=== PATIENT | male | born 1990 | race African-American/Black ===

== ENCOUNTER 2018-08-15 19:55 | Emergency (ER) | payer OTHER, SELFPAY ==
[2018-08-15 20:00] VITALS: BP 184/93; PULSE 90; RESP 14; TEMP 36.4; O2SAT 99; BMI 32.5
--- NOTE | 2018-08-15 20:09 | DI.CT.S_ITS ---
PROCEDURE: CT ABDOMEN PELVIS W CON INDICATIONS: Hemoptysis TECHNIQUE: After the administration of oral and intravenous contrast, 5 mm thick sections acquired from the diaphragms to the symphysis. 5 mm thick coronal and sagittal reformats were performed. For radiation dose reduction, the following was used: automated exposure control, adjustment of mA and/or kV according to patient size. COMPARISON: None. FINDINGS: Image quality: Excellent. ABDOMEN: Lung bases: Lung bases are clear. Heart size is normal. No varices visualized. Solid organs: No focal hepatic lesions identified. Liver is smooth in contour. Gallbladder appears within normal limits without calcified gallstones. Biliary system is non-dilated. Pancreas enhances normally. Spleen is normal in size and enhancement. No adrenal nodules. Kidneys are normal in size and enhancement, without hydronephrosis. Peritoneum and bowel: Stomach, small bowel, and colon loops are normal in caliber and wall thickness. The appendix is normal in appearance. There is colonic diverticulosis without acute diverticulitis. No free fluid or air. Nodes and vessels: No retroperitoneal or mesenteric adenopathy. Aorta and inferior vena cava are normal in caliber. Miscellaneous: No ventral hernias. PELVIS: Genitourinary: The urinary bladder is partially distended with mild concentric wall thickening. Miscellaneous: No inguinal hernias or adenopathy. Bones: No suspicious bony lesions. No vertebral body compression fractures. IMPRESSION: 1. No definite acute intra-abdominal abnormality to correlate with history of hemoptysis. 2. Diverticulosis without acute diverticulitis. 3. Mild concentric bladder wall thickening may reflect nondistention or a nonspecific cystitis. Recommend correlation with urinalysis. Dictated by: Nabil Dowling M.D. on 08/15/2018 at 21:34 Approved by: Nabil Dowling M.D. on 08/15/2018 at 21:41
[2018-08-15 20:21] LABS: Add Manual Diff / Slide Review NO; Basophils Percent Auto 0.3 % (0-2); Eosinophils Percent Auto 0.4 % (2-4); Hematocrit 43.1 % (41-53); Hemoglobin 14.6 g/dL (13.5-17.5); Lymphocytes Percent Auto 23.8 % (25-40); Mean Corpuscular HGB Conc 33.9 % (30-36); Mean Corpuscular Hemoglobin 30.1 PG (26-34); Mean Corpuscular Volume 88.9 fL (80-100); Monocytes Percent Auto 7.7 % (3-14); Neutrophils Absolute Auto 4100 /uL (3000-5900); Neutrophils Percent Auto 67.8 % (50-75); Platelet Count 300 X10^3/uL (150-400); Red Blood Cell Count 4.85 X10^6/uL (4.5-5.9); Red Cell Distribution Width 14.1 % (11.6-14.8)
[2018-08-15] MEDS: SODIUM CHLORIDE 0.9% 1,000 ML 1000 ML IV (20:25)
[2018-08-15] MEDS: ONDANSETRON 4 MG/2 ML INJ IV (20:25)
[2018-08-15] MEDS: PANTOPRAZOLE 40 MG VIAL IV (20:25)
[2018-08-15 20:42] VITALS: BP 148/58; PULSE 79; RESP 18; O2SAT 100
[2018-08-15 20:55] LABS: Alanine Aminotransferase 53 IU/L (21-72); Albumin 5.2 g/dL (3.5-5.0); Albumin Globulin Ratio 1.3 (1.0-2.8); Alkaline Phosphatase 77 U/L (38-126); Aspartate Aminotransferase 79 IU/L (17-59); BUN Creatinine Ratio 15.6 (6-22); Bilirubin Total 0.8 mg/dL (0.2-1.3); Blood Urea Nitrogen 14 mg/dL (9-20); Calcium 10.4 mg/dL (8.4-10.2); Carbon Dioxide 29 mmol/L (22-32); Chloride 91 mmol/L (98-107); Estimated Glomerular Filt Rate > 60.0 mL/min (>60); Globulin 3.9 g/dL (1.7-4.1); Glucose 100 mg/dL (70-100); HEMOLYSIS < 15 (0-50); Lipase 144 U/L (23-300); Potassium 3.9 mmol/L (3.4-5.1); Sodium 136 mmol/L (137-145); Total Protein 9.1 g/dL (6.3-8.2)
--- NOTE | 2018-08-15 21:28 | ED_ITS ---
HPI - Abdominal Pain <ABIMAEL Kimball - Last Filed: 08/15/18 22:00> General Chief Complaint: Abdominal Pain Stated Complaint: THROWING UP BLOOD Time Seen by Provider: 08/15/18 20:07 Source: patient Mode of arrival: ambulatory Limitations: no limitations History of Present Illness HPI narrative: 28-year-old male with history of hypertension is a nonsmoker here for complaint of having bloody emesis earlier today. He states that he drinks approximately 2 bottles of wine a day. He did not have any alcohol today. He said he had 1 episode earlier today where he had some nausea vomiting where he has emesis were blood was mixed in with food. This was a few hours ago. He denies any repeat episodes of emesis he denies any abdominal pain. He denies any fevers or chills. No trauma. He denies any chest pain. He denies any other concerns or complaints at this timeframe. complaint: other Related Data Home Medications Medication Instructions Recorded Confirmed hydrochlorothiazide 25 mg PO DAILY 08/15/18 08/15/18 Previous Rx's Medication Instructions Recorded omeprazole 40 mg PO DAILY #14 cap 08/15/18 Allergies Allergy/AdvReac Type Severity Reaction Status Date / Time No Known Drug Allergies Allergy Verified 08/15/18 20:03 Review of Systems <ABIMAEL Kimball - Last Filed: 08/15/18 22:00> Constitutional Denies chills, Denies fever(s), Denies lethargy and Denies weakness Eyes Denies change in vision, Denies eye discharge, Denies irritation and Denies loss of vision ENT Ears, Nose, Mouth, and Throat: Denies change in voice, Denies neck pain and Denies sore throat Cardiovascular Denies chest pain, Denies irregular heart rhythm, Denies lightheadedness, Denies palpitations, Denies dyspnea, Denies dyspnea on exertion and Denies orthopnea Respiratory Denies cough, Denies dyspnea, Denies dyspnea on exertion and Denies wheezing Gastrointestinal Gastrointestinal: Denies abdominal pain, Denies change in bowel habits, Denies diarrhea, Denies nausea, Denies vomiting and Reports hematemesis Genitourinary Denies hematuria, Denies flank pain, Denies urinary incontinence and Denies urinary urgency Musculoskeletal Denies neck pain Integumentary/Breasts Denies pruritus, Denies erythema, Denies rash and Denies wounds Neurologic Denies confusion, Denies loss of vision and Denies weakness Psychiatric Denies anxiety, Denies confusion, Denies depression, Denies homicidal ideation and Denies suicidal ideation Endocrine Denies palpitations Hematologic/Lymphatic Denies easy bruising Allergic/Immunologic Denies wheezing Exam <ABIMAEL Kimball - Last Filed: 08/15/18 22:00> Initial Vital Signs Initial Vital Signs: Vital Signs Temperature 97.6 F 08/15/18 20:00 Pulse Rate 90 08/15/18 20:00 Respiratory Rate 14 08/15/18 20:00 Blood Pressure 184/93 H 08/15/18 20:00 Pulse Oximetry 99 08/15/18 20:00 Const General: cooperative and well developed Nutritional Appearance: well nourished Orientation: alert, awake, oriented x3 and not confused HENMT Mouth: oral mucosae normal and moist mucous membranes Eyes Conjunctivae: conjunctivae normal Sclera: sclerae normal Pupils: PERRL EOM: EOM intact bilaterally Neck Neck: normal visual inspection, trachea midline, No lymphadenopathy, No midline deformity and No JVD Lymphatic: No lymphedema Chest Chest: normal inspection of the chest Resp Effort & Inspection: normal respiratory effort, able to speak in complete sentences, no respiratory distress and no use of accessory muscles Auscultation: clear to auscultation bilaterally, no rales, no rhonchi and no wheezes Cardio Rate: regular rate Rhythm: regular rhythm Heart Sounds: no click, no gallops, no murmurs and no rubs GI Inspection: non-distended Palpation: soft, no hepatosplenomegaly, No guarding, No pulsatile mass and No tender Auscultation: normal bowel sounds General: No CVA tenderness Skin General: no rashes or lesions noted, No jaundice and No petechiae Neuro General: alert, oriented x3, gait normal and no focal motor deficits Speech: speech normal Extrem General: full ROM, no clubbing, cyanosis or edema, no pedal edema and no calf tenderness <Donavon Robert DO - Last Filed: 08/16/18 00:18> Initial Vital Signs Initial Vital Signs: Vital Signs Temperature 97.6 F 08/15/18 20:00 Pulse Rate 90 08/15/18 20:00 Respiratory Rate 14 08/15/18 20:00 Blood Pressure 184/93 H 08/15/18 20:00 Pulse Oximetry 99 08/15/18 20:00 Course <ABIMAEL Kimball - Last Filed: 08/15/18 22:00> Orders Ordered: ED Orders 08/15/18 20:09 CT abdomen pelvis w con Stat 08/15/18 20:10 Complete Blood Count AUTO DIFF Stat Comprehensive Metabolic Panel Stat Lipase Stat Type and Screen Stat Discontinued Medications Sodium Chloride (Normal Saline 0.9%) 1,000 mls @ 1,000 mls/hr IV BOLUS ONE Stop: 08/15/18 21:10 Last Infusion: 08/15/18 21:55 Dose: 0 mls/hr Admin: 08/15/18 20:25 Dose: 1,000 mls/hr Ondansetron HCl (Zofran) 4 mg IV NOW ONE Stop: 08/15/18 20:12 Last Admin: 08/15/18 20:25 Dose: 4 mg Pantoprazole Sodium (Protonix) 40 mg IV NOW ONE Stop: 08/15/18 20:22 Last Admin: 08/15/18 20:25 Dose: 40 mg Vital Signs - 8 hr 08/15/18 20:00 08/15/18 20:42 08/15/18 22:16 Temperature 97.6 F Pulse Rate 90 79 74 Respiratory Rate 14 18 14 Blood Pressure 184/93 H 155/79 H Blood Pressure [Left Arm] 148/58 H Pulse Oximetry 99 100 100 <Donavon Robert DO - Last Filed: 08/16/18 00:18> Orders Ordered: ED Orders 08/15/18 20:09 CT abdomen pelvis w con Stat 08/15/18 20:10 Complete Blood Count AUTO DIFF Stat Comprehensive Metabolic Panel Stat Lipase Stat Type and Screen Stat Discontinued Medications Sodium Chloride (Normal Saline 0.9%) 1,000 mls @ 1,000 mls/hr IV BOLUS ONE Stop: 08/15/18 21:10 Last Infusion: 08/15/18 21:55 Dose: 0 mls/hr Admin: 08/15/18 20:25 Dose: 1,000 mls/hr Ondansetron HCl (Zofran) 4 mg IV NOW ONE Stop: 08/15/18 20:12 Last Admin: 08/15/18 20:25 Dose: 4 mg Pantoprazole Sodium (Protonix) 40 mg IV NOW ONE Stop: 08/15/18 20:22 Last Admin: 08/15/18 20:25 Dose: 40 mg Vital Signs - 8 hr 08/15/18 20:00 08/15/18 20:42 08/15/18 22:16 Temperature 97.6 F Pulse Rate 90 79 74 Respiratory Rate 14 18 14 Blood Pressure 184/93 H 155/79 H Blood Pressure [Left Arm] 148/58 H Pulse Oximetry 99 100 100 MDM - Abdominal Pain <ABIMAEL Kimball - Last Filed: 08/15/18 22:00> Lab Data Result diagrams: 08/15/18 20:10 08/15/18 20:10 Lab Results 08/15/18 08/15/18 08/15/18 Range/Units 20:10 20:10 20:10 WBC 6.0 (4.5-11.0) X10^3/uL RBC 4.85 (4.5-5.9) X10^6/uL Hgb 14.6 (13.5-17.5) g/dL Hct 43.1 (41-53) % MCV 88.9 (80-100) fL MCH 30.1 (26-34) PG MCHC 33.9 (30-36) % RDW 14.1 (11.6-14.8) % Plt Count 300 (150-400) X10^3/uL Neut % (Auto) 67.8 (50-75) % Lymph % (Auto) 23.8 L (25-40) % Anson % (Auto) 7.7 (3-14) % Eos % (Auto) 0.4 L (2-4) % Baso % (Auto) 0.3 (0-2) % Neut # (Auto) 4100 (6591-1927) /uL Sodium 136 L (137-145) mmol/L Potassium 3.9 (3.4-5.1) mmol/L Chloride 91 L (98-107) mmol/L Carbon Dioxide 29 (22-32) mmol/L BUN 14 (9-20) mg/dL Creatinine 0.90 (0.66-1.25) mg/dL Estimated GFR > 60.0 (>60) mL/min BUN/Creatinine Ratio 15.6 (6-22) Glucose 100 (70-100) mg/dL Calcium 10.4 H (8.4-10.2) mg/dL Total Bilirubin 0.8 (0.2-1.3) mg/dL AST 79 H (17-59) IU/L ALT 53 (21-72) IU/L Alkaline Phosphatase 77 (38-126) U/L Total Protein 9.1 H (6.3-8.2) g/dL Albumin 5.2 H (3.5-5.0) g/dL Globulin 3.9 (1.7-4.1) g/dL Albumin/Globulin Ratio 1.3 (1.0-2.8) Lipase 144 (23-300) U/L Blood Type O Positive Antibody Screen Negative Point of care testing: Urine Dip Bedside Urine Glucose Negative Bedside Urine Bilirubin - Negative Bedside Urine Ketone +/- 5 Urine Specific Lind[place] 1.010 Bedside Urine Occult Blood - Negative Bedside Urine pH 7.5 Bedside Urine Protein - Negative Bedside Urine Urobilinogen - Negative Bedside Urine Nitrite - Negative Bedside Urine Leukocytes - Negative Esterase Imaging Data CT scan - abdomen: Radiologist's impression: [place] [address] CT Scan Report Signed Patient: NABOR CABALLERO EMR#: [id number] : 1990Acct:[id number] Age/Sex: MDate of Service: 08/15/18 Loc: ED Accession Number: [id number] Procedure: CT abdomen pelvis w con Ordering Provider: Bong Brito PROCEDURE: CT ABDOMEN PELVIS W CON INDICATIONS: Hemoptysis TECHNIQUE: After the administration of oral and intravenous contrast, 5 mm thick sections acquired from the diaphragms to the symphysis. 5 mm thick coronal and sagittal reformats were performed. For radiation dose reduction, the following was used: automated exposure control, adjustment of mA and/or kV according to patient size. COMPARISON: None. FINDINGS: Image quality: Excellent. ABDOMEN: Lung bases: Lung bases are clear. Heart size is normal. No varices visualized. Solid organs: No focal hepatic lesions identified. Liver is smooth in contour. Gallbladder appears within normal limits without calcified gallstones. Biliary system is non-dilated. Pancreas enhances normally. Spleen is normal in size and enhancement. No adrenal nodules. Kidneys are normal in size and enhancement, without hydronephrosis. Peritoneum and bowel: Stomach, small bowel, and colon loops are normal in caliber and wall thickness. The appendix is normal in appearance. There is colonic diverticulosis without acute diverticulitis. No free fluid or air. Nodes and vessels: No retroperitoneal or mesenteric adenopathy. Aorta and inferior vena cava are normal in caliber. Miscellaneous: No ventral hernias. PELVIS: Genitourinary: The urinary bladder is partially distended with mild concentric wall thickening. Miscellaneous: No inguinal hernias or adenopathy. Bones: No suspicious bony lesions. No vertebral body compression fractures. IMPRESSION: 1. No definite acute intra-abdominal abnormality to correlate with history of hemoptysis. 2. Diverticulosis without acute diverticulitis. 3. Mild concentric bladder wall thickening may reflect nondistention or a nonspecific cystitis. Recommend correlation with urinalysis. Dictated by: Nabil Dowling M.D. on 08/15/2018 at 21:34 Approved by: Nabil Dowling M.D. on 08/15/2018 at 21:41 MDM Narrative Medical decision making narrative: CBC was obtained was unremarkable. Chem panel shows mildly elevated AST otherwise is unremarkable. Lipase was negative. CT of the abdomen was obtained and was negative for any acute findings with exception of bladder wall thickening. Urinalysis dip was negative for urinary tract infection. He is prescribed esomeprazole for 2 weeks to see if it helps symptoms. Follow up with primary care provider for frequent re-evaluation. May need endoscopy for further evaluation. For any worsening symptoms return emergency room. He is instructed to limit ibuprofen use and use Tylenol until cleared by primary care. <Donavon Robert, - Last Filed: 08/16/18 00:18> Lab Data Lab Results 08/15/18 08/15/18 08/15/18 Range/Units 20:10 20:10 20:10 WBC 6.0 (4.5-11.0) X10^3/uL RBC 4.85 (4.5-5.9) X10^6/uL Hgb 14.6 (13.5-17.5) g/dL Hct 43.1 (41-53) % MCV 88.9 (80-100) fL MCH 30.1 (26-34) PG MCHC 33.9 (30-36) % RDW 14.1 (11.6-14.8) % Plt Count 300 (150-400) X10^3/uL Neut % (Auto) 67.8 (50-75) % Lymph % (Auto) 23.8 L (25-40) % Anson % (Auto) 7.7 (3-14) % Eos % (Auto) 0.4 L (2-4) % Baso % (Auto) 0.3 (0-2) % Neut # (Auto) 4100 (0006-9601) /uL Sodium 136 L (137-145) mmol/L Potassium 3.9 (3.4-5.1) mmol/L Chloride 91 L (98-107) mmol/L Carbon Dioxide 29 (22-32) mmol/L BUN 14 (9-20) mg/dL Creatinine 0.90 (0.66-1.25) mg/dL Estimated GFR > 60.0 (>60) mL/min BUN/Creatinine Ratio 15.6 (6-22) Glucose 100 (70-100) mg/dL Calcium 10.4 H (8.4-10.2) mg/dL Total Bilirubin 0.8 (0.2-1.3) mg/dL AST 79 H (17-59) IU/L ALT 53 (21-72) IU/L Alkaline Phosphatase 77 (38-126) U/L Total Protein 9.1 H (6.3-8.2) g/dL Albumin 5.2 H (3.5-5.0) g/dL Globulin 3.9 (1.7-4.1) g/dL Albumin/Globulin Ratio 1.3 (1.0-2.8) Lipase 144 (23-300) U/L Blood Type O Positive Antibody Screen Negative Point of care testing: Urine Dip Bedside Urine Glucose Negative Bedside Urine Bilirubin - Negative Bedside Urine Ketone +/- 5 Urine Specific [place] 1.010 Bedside Urine Occult Blood - Negative Bedside Urine pH 7.5 Bedside Urine Protein - Negative Bedside Urine Urobilinogen - Negative Bedside Urine Nitrite - Negative Bedside Urine Leukocytes - Negative Esterase Discharge Plan Departure Patient Disposition: Home Clinical Impression: Hematemesis Discharge Date/Time: 08/15/18 22:16 Interventions: ED Discharge Assessment Last Done: 08/15/18 22:16 Instructions: DI for Vomiting -- Adult Activity Restrictions/Additional Instructions: Laboratory results today show mildly elevated liver enzymes otherwise is unremarkable. CT of abdomen was negative for any acute findings. You are prescribed an anti acid medication use for the next 2 weeks as prescribed. Follow up with her primary care provider the next few days for re-evaluation. If continued symptoms may need to have endoscopy for further evaluation. No ibuprofen use or NSAID as if this is a ulcer that is causing your symptoms these can make it worse. Use [id number] Tylenol as needed for discomfort. Prescriptions: New omeprazole 40 mg capsule,delayed release(DR/EC) 40 mg PO DAILY Qty: 14 RF: 0 No Action hydrochlorothiazide 25 mg Tablet 25 mg PO DAILY RF: 0 Referrals: [facility] [Provider Group] <Donavon Robert DO - Last Filed: 08/16/18 00:18> Cosign ED Attending Giovanyature Attestation: I was immediately available in the department for consultation. Documentation has been reviewed. I agree with assessment and plan.
[2018-08-15 22:16] VITALS: BP 155/79; PULSE 74; RESP 14; O2SAT 100
== END 2018-08-15 22:16 | disposition home or self-care (01) ==
PROVIDERS: Emergency Provider Nurse Practitioner Family
DX: K92.0 Hematemesis (principal)
CPT/HCPCS: 36591; 74177; 80053; 81003; 83690; 85025; 86850; 86900; 86901; 96361; 96374; 96375; 99283; 99285; C9113; J2405; Q9967

== ENCOUNTER → 2018-12-20 17:06 | Outpatient (CLI) | payer OTHER, SELFPAY ==
--- NOTE | 2018-12-20 17:08 | DI.MRI.S_ITS ---
PROCEDURE: MR KNEE RT WO CON INDICATIONS: RIGHT KNEE PAIN TECHNIQUE: Noncontrast sagittal PD fast spin echo and T2 fast spin echo with fat saturation, sagittal 3-D FLASH with fat saturation; coronal T1 spin echo and PD fast spin echo with fat saturation, and axial PD fast spin echo with fat saturation through the knee. COMPARISON: None. FINDINGS: Image quality: Excellent. Menisci: The medial and lateral menisci demonstrate normal morphology and internal signal. The meniscal root ligaments appear intact. Cruciate ligaments: The anterior and posterior cruciate ligaments appear intact. Medial structures: Mild thickening of the proximal medial collateral ligament suggesting age-indeterminate low-grade sprain. The posterior oblique ligament, semimembranosus tendon insertions, oblique popliteal ligament, and meniscocapsular junction appear intact. Visualized portions of the pes anserinus tendons appear normal. No abnormal bursal fluid. Lateral structures: The lateral collateral ligament, long and short heads of the biceps femoris tendon appear intact. The popliteus tendon appears normal; the popliteofibular ligament appears intact. The posterosuperior and anteroinferior popliteomeniscal fascicles appear intact. The arcuate and fabellofibular ligaments appear intact, on either side of the lateral inferior geniculate artery. Iliotibial band appears normal. Anterior structures: The quadriceps tendon is intact. There is proximal patellar tendinopathy and mild thickening with low-grade intrasubstance signal change. There is also adjacent soft tissue edema. Patellar alignment is normal. No femoral trochlear dysplasia or ventral trochlear prominence. Deep infrapatellar bursal fluid suggestive of bursitis Bones and cartilage: No focal marrow contusion or discrete low signal fracture line. Within the medial compartment, diffuse partial-thickness loss of the femoral and tibial articular cartilage, mild. Within the lateral compartment, articular cartilage appears grossly preserved. Within the patellofemoral compartment, partial-thickness fissuring in intrasubstance signal change involving the cartilage overlying the median patellar ridge. Femoral trochlear cartilage grossly intact. Joint space: No Roque's cyst. Large joint effusion is present. No intra-articular loose bodies seen. Prominent fluid seen at the proximal tibiofibular articulation which extends to the anterolateral tibial plateau could be fluid within meniscosynovial recess versus atypical ganglion cyst IMPRESSION: Proximal patellar tendinopathy. Deep infrapatellar bursitis. 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 Large joint effusion. Age-indeterminate low-grade sprain of the proximal medial collateral ligament. Prominent fluid at the proximal tibiofibular articulation potentially incidental meniscosynovial recess fluid versus atypical ganglion cyst. Dictated by: Jeff Radford M.D. on 12/21/2018 at 8:57 Approved by: Jeff Radford M.D. on 12/21/2018 at 9:07
== END ==
PROVIDERS: Visit Provider Preventive Medicine Public Health & General Preventive Medicine
DX: M25.561 Pain in right knee (principal); M71.561 Other bursitis, not elsewhere classified, right knee; M22.41 Chondromalacia patellae, right knee; M17.11 Unilateral primary osteoarthritis, right knee; M25.461 Effusion, right knee; S83.411A Sprain of medial collateral ligament of right knee, initial encounter
CPT/HCPCS: 73721